=== PATIENT | female | born 1990 | race Caucasian/White ===

== ENCOUNTER 2017-11-29 19:34 | Inpatient (IN) | payer BC ==
[2017-11-29] MEDS ORDERED: Sodium Chloride 0.9% 2.5 ML Syringe FLUSH PRN (20:05)
[2017-11-29] MEDS ORDERED: Misoprostol 25 MCG (1/4 of 100 MCG) Tab VAG PRN (20:05)
[2017-11-29] MEDS ORDERED: Water For Irrigation,Sterile 1,000 ML Container IRR PRN (20:05)
[2017-11-29] MEDS ORDERED: Misoprostol 200 MCG Tab PO PRN (20:05)
[2017-11-29] MEDS ORDERED: Carboprost Tromethamine 250 MCG/1 ML Amp IM PRN (20:05)
[2017-11-29] MEDS ORDERED: Methylergonovine 0.2 MG/1 ML Amp IM PRN (20:05)
[2017-11-29] MEDS ORDERED: Butorphanol 1 MG/ML SDV IVPUSH PRN (20:05)
[2017-11-29] MEDS ORDERED: Terbutaline 1 MG/ML SDV SUBCUT PRN (20:05)
[2017-11-29] MEDS ORDERED: Sodium Chloride 0.9% 10 ML Syringe FLUSH PRN (20:05)
[2017-11-29] MEDS ORDERED: Nalbuphine 10 MG/1 ML Vial IVPUSH PRN (20:05)
[2017-11-29] MEDS ORDERED: Lidocaine 1% 50 ML MDV INJECT PRN (20:05)
[2017-11-29] MEDS ORDERED: Oxytocin/0.9 % Sodium Chloride 30 UNIT/500 ML BAG IV SCH ×2 (20:15)
[2017-11-29] MEDS: Lactated Ringers 1,000 ML IV SCH ×2 (20:26→23:57)
[2017-11-29] MEDS ORDERED: Dinoprostone 10 MG Insert VAG ONE (23:30)
[2017-11-30] MEDS ORDERED: Ropivacaine 0.2% 2 MG/ML 20 ML SDV ONE (12:59)
--- NOTE | 2017-11-30 13:28 | PCM.PREANE ---
Preanesthetic Assessment - Procedure Proposed Procedure: induction of labor-epidural - Anesthesia/Transfusion/Family Hx Anesthesia History: Prior Anesthesia Without Reaction Family History of Anesthesia Reaction: No Transfusion History: No Prior Transfusion(s) - Review of Systems Other: Reports: None - Physical Assessment Height: 5 ft 6 in Weight: 87.543 kg ASA Class: 2 Mental Status: Alert & Oriented x3 Airway Class: Mallampati = 1 Dentition: Reports: Normal Dentition Thyro-Mental Finger Breadths: 3 Mouth Opening Finger Breadths: 3 ROM/Head Extension: Full - Lab Values: Laboratory Last Values WBC 16.57 K/uL (4.0-11.0) H 11/29/17 20:18 RBC 3.74 M/uL (4.30-5.90) L 11/29/17 20:18 Hgb 11.6 g/dL (12.0-16.0) L 11/29/17 20:18 Hct 33.9 % (36.0-46.0) L 11/29/17 20:18 MCV 90.6 fL (80.0-98.0) 11/29/17 20:18 MCH 31.0 pg (27.0-32.0) 11/29/17 20:18 MCHC 34.2 g/dL (31.0-37.0) 11/29/17 20:18 RDW Std Deviation 45.3 fl (28.0-62.0) 11/29/17 20:18 RDW Coeff of Keven 14 % (11.0-15.0) 11/29/17 20:18 Plt Count 192 K/uL (150-400) 11/29/17 20:18 MPV 11.20 fL (7.40-12.00) 11/29/17 20:18 Nucleated RBC % 0.0 /100WBC 11/29/17 20:18 Nucleated RBCs # 0 K/uL 11/29/17 20:18 Blood Type A POSITIVE 11/29/17 20:18 Antibody Screen NEGATIVE 11/29/17 20:18 - Allergies Allergies/Adverse Reactions: Allergies Allergy/AdvReac Type Severity Reaction Status Date / Time No Known Allergies Allergy Verified 11/29/17 20:03 - Blood Blood Available: Yes Product(s) Available: PRBC - Acknowledgements Anesthesia Type Planned: Epidural Pt an Appropriate Candidate for the Planned Anesthesia: Yes Alternatives and Risks of Anesthesia Discussed w Pt/Guardian: Yes Pt/Guardian Understands and Agrees with Anesthesia Plan: Yes PreAnesthesia Questionnaire [employer] History: Reports: - Past Surgical History HEENT Surgical History: Reports: Tonsillectomy - SUBSTANCE USE Smoking Status *Q: Never Smoker Second Hand Smoke Exposure: No Recreational Drug Use History: No - CURRENT (IN HOUSE) MEDS Current Meds: Current Medications Butorphanol Tartrate (Stadol) 1 mg IVPUSH ASDIRECTED PRN PRN Reason: Pain Carboprost Tromethamine (Hemabate Ds) 250 mcg IM ASDIRECTED PRN PRN Reason: Post Hemorrhage Lactated Ringer's (Ringers, Lactated) 1,000 mls @ 150 mls/hr IV ASDIRECTED EDWARD Last Admin: 11/29/17 23:57 Dose: 150 mls/hr Oxytocin/Sodium Chloride (Oxytocin 30 Unit/500 Ml-Ns) 30 unit in 500 mls @ 999 mls/hr IV ASDIRECTED EDWARD Oxytocin/Sodium Chloride (Oxytocin 30 Unit/500 Ml-Ns) 30 unit in 500 mls @ 2 mls/hr IV TITRATE EDWARD; 2 MUNITS/MIN PRN Reason: Protocol Last Titration: 11/30/17 12:59 Dose: 2 munits/min, 2 mls/hr Lidocaine HCl (Xylocaine 1%) 50 ml INJECT .ONCE PRN PRN Reason: Laceration repair Methylergonovine Maleate (Methergine) 0.2 mg IM ASDIRECTED PRN PRN Reason: Post Hemorrhage Misoprostol (Cytotec) 200 mcg PO .ONCE PRN PRN Reason: Post Hemorrhage Misoprostol (Cytotec) 25 mcg VAG Q6H PRN PRN Reason: Cervical Ripening Nalbuphine HCl (Nubain) 10 mg IVPUSH Q1H PRN PRN Reason: Pain (severe 7-10) Sodium Chloride (Saline Flush) 10 ml FLUSH ASDIRECTED PRN PRN Reason: Keep Vein Open Sodium Chloride (Saline Flush) 2.5 ml FLUSH ASDIRECTED PRN PRN Reason: Keep Vein Open Sterile Water (Sterile Water For Irrigation) 1,000 ml IRR ASDIRECTED PRN PRN Reason: delivery Terbutaline Sulfate (Brethine) 0.25 mg SUBCUT ASDIRECTED PRN PRN Reason: Tacysystole Discontinued Medications Dinoprostone (Cervidil) 10 mg VAG ONETIME ONE Stop: 11/29/17 23:31 Last Admin: 11/29/17 23:57 Dose: 10 mg Ropivacaine (Naropin 0.2%) Confirm Administered Dose 20 ml .ROUTE .STK-MED ONE Stop: 11/30/17 13:00
[2017-11-30] MEDS: Lactated Ringers 1,000 ML IV SCH (15:00)
[2017-11-30] MEDS ORDERED: Witch Hazel Medicated Pads 40/Jar TOP PRN (18:15)
[2017-11-30] MEDS ORDERED: oxyCODONE 5 MG Tab PO PRN (18:15)
[2017-11-30] MEDS ORDERED: Benzocaine/Menthol 20%-0.5% Spray 78 GM Cannister TOP PRN (18:15)
[2017-11-30] MEDS ORDERED: Acetaminophen 500 MG Tab PO PRN (18:15)
[2017-11-30] MEDS ORDERED: Ibuprofen 400 MG Tab PO PRN (18:15)
[2017-11-30] MEDS ORDERED: Methylergonovine 0.2 MG/1 ML Amp IM PRN (18:15)
[2017-11-30] MEDS ORDERED: Lanolin 100% Cream 7 GM Tube TOP PRN (18:15)
[2017-11-30] MEDS ORDERED: Bisacodyl 10 MG Supp RECTAL PRN (18:15)
[2017-11-30] MEDS: Ibuprofen 800 MG Tab PO PRN (21:27)
--- NOTE | 2017-12-01 00:31 | OR ---
SURGEON: Kaylan Hernandez M.D. DATE OF PROCEDURE: 11/30/2017 PREOPERATIVE DIAGNOSES: 1. A 40 and 4/7 weeks' intrauterine . 2. Polyhydramnios. 3. Postdates induction. POSTOPERATIVE DIAGNOSES: 1. A 40 and 4/7 weeks' intrauterine . 2. Polyhydramnios. 3. Postdates induction. 4. Cervidil and Pitocin induction of labor. PROCEDURE: Vacuum-assisted vaginal delivery with repair of second-degree laceration. ANESTHESIA: Epidural. ESTIMATED BLOOD LOSS: Less than 300 mL. FINDINGS: Liveborn female, scores of 8 and 8. Weight is pending at the time of dictation. Placenta was delivered spontaneously. Schultze intact with 3 vessels. Second-degree perineal laceration was repaired as well as a right labial laceration which was sutured for hemostasis. BRIEF HISTORY: This is a 27-year-old female. She is G1, P0. She presents to the clinic at 40 and 3/7 weeks' gestation with postdates. Biophysical profile showing polyhydramnios, therefore, recommendation for induction of labor was made and she did agree. She was sent to Labor and Delivery. She was 1 to 2 cm, 50%, -2 station. Plan initially was for Cytotec and although she had a reactive NST in the clinic, the NST was not reactive on Labor and Delivery. Therefore, Cervidil was placed and throughout the night, she then did develop a reactive NST. In the morning, she was 3 cm, 70%, -1 station. Artificial rupture of membranes was performed. Clear fluid noted. She was allowed to continue with spontaneous labor for 2 hours. She was then 3 to 4 cm dilated, 70%, -1 station, therefore, Pitocin was initiated. Shortly thereafter, she received an epidural for pain control. She had some episodes of deceleration throughout labor. The Pitocin was discontinued, restarted. She did progress to complete. DESCRIPTION OF PROCEDURE: With the patient in dorsal lithotomy position, the patient pushed over approximately a 30-minute time period to a 5+ station. She did have deep decelerations over the last 15 minutes of pushing, therefore, I did recommend proceeding with vacuum-assisted vaginal delivery with risks discussed including, scalp laceration, cephalohematoma, vaginal laceration, and intracranial hemorrhage. Understanding these risks, she does desire to proceed. With the patient in dorsal lithotomy position, the patient had been pushing for approximately 15 minutes. The head was at a +4 station in the direct occiput anterior position. The bladder had been drained. She was noted to have a gynecoid pelvis and estimated weight was 3300 g. The vacuum was applied in the mid sagittal line, 2 cm anterior to the posterior fontanelle, and with a single maternal push, the head was delivered over the perineum with support. The vacuum was removed. There was subsequent delivery of the infant's shoulders and body. There was no nuchal or body cord. The was immediately vigorous and was handed to the mother in the presence of the nurse attending delivery. The was a liveborn female, scores of 8 and 8. Weight is pending at the time of dictation. After the cord had ceased to pulsate, it was doubly clamped and cut. Cord blood was collected for cord ABGs as well as routine cord blood sampling. Pitocin was initiated after delivery of the infant to assist with delivery of the placenta which was delivered spontaneously. Schultze intact with 3 vessels. Upon inspection of the pelvis and perineum, there were no periurethral, vaginal sidewall, cervical, or rectal lacerations. There was a second-degree perineal laceration that was repaired using multiple interrupted [id number] sutures of 2-0 Caprosyn for the deep perineal tissue and a running lock suture over the vaginal mucosa for the same, followed by subcuticular suture for the skin. There was some bleeding from the upper right labial laceration and that was controlled with a single figure-of- eight suture of the 2-0 Caprosyn. Final sponge, needle, and instrument count were correct. There were no complications. Mother and baby remained in LDRP in good condition. ABHIJIT / IGNACIA /[id number]
[2017-12-01] MEDS: Ibuprofen 800 MG Tab PO PRN ×3 (04:08→22:36)
--- NOTE | 2017-12-01 07:56 | PCM.PNPP ---
<Graciela Garrett - Last Filed: 12/01/17 07:54> - General Info Date of Service: 12/01/17 Functional Status: Reports: Pain Controlled, Tolerating Diet, Ambulating, Urinating - Review of Systems General: Denies: Fever, Weakness, Fatigue Pulmonary: Denies: Shortness of Breath, Pleuritic Chest Pain, Cough, Other Cardiovascular: Denies: Chest Pain, Palpitations, Dyspnea on Exertion Gastrointestinal: Denies: Abdominal Pain Genitourinary: Denies: Dysuria - General Info Date of Service: 12/01/17 - Patient Data Vital Signs - Most Recent: Last Vital Signs Temp 36.4 C 12/01/17 04:00 Pulse 66 12/01/17 04:00 Resp 17 12/01/17 04:00 BP 124/75 12/01/17 04:00 Pulse Ox 97 12/01/17 04:00 Weight - Most Recent: 87.543 kg I&O - Last 24 Hours: Intake & Output 11/30/17 12/01/17 12/01/17 22:59 06:59 14:59 Intake Total 400 Output Total 500 Balance -100 Lab Results - Last 24 Hours: Laboratory Results - last 24 hr 11/30/17 11/30/17 12/01/17 Range/Units 17:41 17:41 06:36 Hgb 11.0 L (12.0-16.0) g/dL Hct 32.0 L (36.0-46.0) % Cord ABG pH 7.287 (7.18-7.38) Cord ABG Base Excess -6 (-10--2) Cord VBG pH 7.251 (7.25-7.45) Cord VBG Base Excess -6 (-10--2) Med Orders - Current: Current Medications Acetaminophen (Tylenol Extra Strength) 500 mg PO Q4H PRN PRN Reason: Pain Acetaminophen (Tylenol Extra Strength) 1,000 mg PO Q4H PRN PRN Reason: Pain Benzocaine/Menthol (Dermoplast Pain Relief 20%-0.5% [place]) 78 gm TOP ASDIRECTED PRN PRN Reason: Perineal Comfort Measure Bisacodyl (Dulcolax) 10 mg RECTAL .ONCE PRN PRN Reason: Constipation Docusate Sodium (Colace) 100 mg PO BID PRN PRN Reason: Constipation Emollient Ointment (Lansinoh Hpa) 0 gm TOP ASDIRECTED PRN PRN Reason: Sore Nipples Last Admin: 11/30/17 21:28 Dose: 1 tube Ibuprofen (Motrin) 400 mg PO Q4H PRN PRN Reason: Pain Ibuprofen (Motrin) 800 mg PO Q6H PRN PRN Reason: Pain Last Admin: 12/01/17 04:08 Dose: 800 mg Methylergonovine Maleate (Methergine) 0.2 mg IM .ONCE PRN PRN Reason: Excessive Vaginal Bleeding Oxycodone HCl (Oxycodone) 5 mg PO Q2H PRN PRN Reason: Pain Witch Angela (Tucks) 1 pad TOP ASDIRECTED PRN PRN Reason: comfort care Last Admin: 11/30/17 21:29 Dose: 1 tub Discontinued Medications Butorphanol Tartrate (Stadol) 1 mg IVPUSH ASDIRECTED PRN PRN Reason: Pain Carboprost Tromethamine (Hemabate Ds) 250 mcg IM ASDIRECTED PRN PRN Reason: Post Hemorrhage Dinoprostone (Cervidil) 10 mg VAG ONETIME ONE Stop: 11/29/17 23:31 Last Admin: 11/29/17 23:57 Dose: 10 mg Lactated Ringer's (Ringers, Lactated) 1,000 mls @ 150 mls/hr IV ASDIRECTED EDWARD Last Admin: 11/30/17 15:00 Dose: 150 mls/hr Oxytocin/Sodium Chloride (Oxytocin 30 Unit/500 Ml-Ns) 30 unit in 500 mls @ 999 mls/hr IV ASDIRECTED EDWARD Oxytocin/Sodium Chloride (Oxytocin 30 Unit/500 Ml-Ns) 30 unit in 500 mls @ 2 mls/hr IV TITRATE EDWARD; 2 MUNITS/MIN PRN Reason: Protocol Last Titration: 11/30/17 17:42 Dose: 500 munits/min, 500 mls/hr Lidocaine HCl (Xylocaine 1%) 50 ml INJECT .ONCE PRN PRN Reason: Laceration repair Methylergonovine Maleate (Methergine) 0.2 mg IM ASDIRECTED PRN PRN Reason: Post Hemorrhage Misoprostol (Cytotec) 200 mcg PO .ONCE PRN PRN Reason: Post Hemorrhage Misoprostol (Cytotec) 25 mcg VAG Q6H PRN PRN Reason: Cervical Ripening Nalbuphine HCl (Nubain) 10 mg IVPUSH Q1H PRN PRN Reason: Pain (severe 7-10) Ropivacaine (Naropin 0.2%) Confirm Administered Dose 20 ml .ROUTE .[place] ONE Stop: 11/30/17 13:00 Sodium Chloride (Saline Flush) 10 ml FLUSH ASDIRECTED PRN PRN Reason: Keep Vein Open Sodium Chloride (Saline Flush) 2.5 ml FLUSH ASDIRECTED PRN PRN Reason: Keep Vein Open Sterile Water (Sterile Water For Irrigation) 1,000 ml IRR ASDIRECTED PRN PRN Reason: delivery Terbutaline Sulfate (Brethine) 0.25 mg SUBCUT ASDIRECTED PRN PRN Reason: Tacysystole - Interaction Disposition, : [place] in Room with Family Interaction: Holding Infant Feeding: Attempted ; Nursed Fair/Poor Support Person: - Recovery Exam Fundal Tone: Firm Fundal Level: 1 Fingerbreadths Below Umbilicus Fundal Placement: Midline Lochia Amount: Scant Lochia Color: Brownish Episiotomy/Laceration: Approximated Bladder Status: Voiding Urinary Elimination: Voided - Exam General: Alert, Oriented Neck: Supple Lungs: Clear to Auscultation, Normal Respiratory Effort Cardiovascular: Regular Rate, Regular Rhythm GI/Abdominal Exam: Normal Bowel Sounds, No Distention Extremities: Normal Inspection, Pedal Edema (trace) Psy/Mental Status: Alert - Problem List & Annotations (1) Vacuum extractor delivery, delivered SNOMED Code(s): 347215750 Code(s): O66.5 - ATTEMPTED APPLICATION OF VACUUM EXTRACTOR AND FORCEPS Status: Acute Current Visit: Yes - Problem List Review Problem List Initiated/Reviewed/Updated: Yes - Assessment Assessment:: PPD#1 from vacuum-assisted vaginal delivery. Minimal pain and lochia. Work on breast feeding today. Anticipate discharge home tomorrow. - Plan Plan:: Continue routine post-op cares. Aim for discharge home tomorrow. <Kaylan Hernandez - Last Filed: 12/01/17 08:57> - Patient Data Vital Signs - Most Recent: Last Vital Signs Temp 36.4 C 12/01/17 04:00 Pulse 66 12/01/17 04:00 Resp 17 02/09/18 04:00 BP 124/75 12/01/17 04:00 Pulse Ox 97 12/01/17 04:00 I&O - Last 24 Hours: Intake & Output 11/30/17 12/01/17 12/01/17 22:59 06:59 14:59 Intake Total 400 Output Total 500 Balance -100 Lab Results - Last 24 Hours: Laboratory Results - last 24 hr 11/30/17 11/30/17 12/01/17 Range/Units 17:41 17:41 06:36 Hgb 11.0 L (12.0-16.0) g/dL Hct 32.0 L (36.0-46.0) % Cord ABG pH 7.287 (7.18-7.38) Cord ABG Base Excess -6 (-10--2) Cord VBG pH 7.251 (7.25-7.45) Cord VBG Base Excess -6 (-10--2) Med Orders - Current: Current Medications Acetaminophen (Tylenol Extra Strength) 500 mg PO Q4H PRN PRN Reason: Pain Acetaminophen (Tylenol Extra Strength) 1,000 mg PO Q4H PRN PRN Reason: Pain Benzocaine/Menthol (Dermoplast Pain Relief 20%-0.5% [place]) 78 gm TOP ASDIRECTED PRN PRN Reason: Perineal Comfort Measure Bisacodyl (Dulcolax) 10 mg RECTAL .ONCE PRN PRN Reason: Constipation Docusate Sodium (Colace) 100 mg PO BID PRN PRN Reason: Constipation Emollient Ointment (Lansinoh Hpa) 0 gm TOP ASDIRECTED PRN PRN Reason: Sore Nipples Last Admin: 11/30/17 21:28 Dose: 1 tube Ibuprofen (Motrin) 400 mg PO Q4H PRN PRN Reason: Pain Ibuprofen (Motrin) 800 mg PO Q6H PRN PRN Reason: Pain Last Admin: 12/01/17 04:08 Dose: 800 mg Methylergonovine Maleate (Methergine) 0.2 mg IM .ONCE PRN PRN Reason: Excessive Vaginal Bleeding Oxycodone HCl (Oxycodone) 5 mg PO Q2H PRN PRN Reason: Pain Witch Angela (Tucks) 1 pad TOP ASDIRECTED PRN PRN Reason: comfort care Last Admin: 11/30/17 21:29 Dose: 1 tub Discontinued Medications Butorphanol Tartrate (Stadol) 1 mg IVPUSH ASDIRECTED PRN PRN Reason: Pain Carboprost Tromethamine (Hemabate Ds) 250 mcg IM ASDIRECTED PRN PRN Reason: Post Hemorrhage Dinoprostone (Cervidil) 10 mg VAG ONETIME ONE Stop: 11/29/17 23:31 Last Admin: 11/29/17 23:57 Dose: 10 mg Lactated Ringer's (Ringers, Lactated) 1,000 mls @ 150 mls/hr IV ASDIRECTED EDWARD Last Admin: 11/30/17 15:00 Dose: 150 mls/hr Oxytocin/Sodium Chloride (Oxytocin 30 Unit/500 Ml-Ns) 30 unit in 500 mls @ 999 mls/hr IV ASDIRECTED EDWARD Oxytocin/Sodium Chloride (Oxytocin 30 Unit/500 Ml-Ns) 30 unit in 500 mls @ 2 mls/hr IV TITRATE EDWARD; 2 MUNITS/MIN PRN Reason: Protocol Last Titration: 11/30/17 17:42 Dose: 500 munits/min, 500 mls/hr Lidocaine HCl (Xylocaine 1%) 50 ml INJECT .ONCE PRN PRN Reason: Laceration repair Methylergonovine Maleate (Methergine) 0.2 mg IM ASDIRECTED PRN PRN Reason: Post Hemorrhage Misoprostol (Cytotec) 200 mcg PO .ONCE PRN PRN Reason: Post Hemorrhage Misoprostol (Cytotec) 25 mcg VAG Q6H PRN PRN Reason: Cervical Ripening Nalbuphine HCl (Nubain) 10 mg IVPUSH Q1H PRN PRN Reason: Pain (severe 7-10) Ropivacaine (Naropin 0.2%) Confirm Administered Dose 20 ml .ROUTE .STK-MED ONE Stop: 11/30/17 13:00 Sodium Chloride (Saline Flush) 10 ml FLUSH ASDIRECTED PRN PRN Reason: Keep Vein Open Sodium Chloride (Saline Flush) 2.5 ml FLUSH ASDIRECTED PRN PRN Reason: Keep Vein Open Sterile Water (Sterile Water For Irrigation) 1,000 ml IRR ASDIRECTED PRN PRN Reason: delivery Terbutaline Sulfate (Brethine) 0.25 mg SUBCUT ASDIRECTED PRN PRN Reason: Tacysystole - My Orders Last 24 Hours: My Active Orders 11/30/17 18:15 Patient Status [ADT] Routine May Shower [RC] ASDIRECTED Up ad [place] [RC] ASDIRECTED Vital Signs [RC] PER UNIT ROUTINE Acetaminophen [Tylenol Extra Strength] 1,000 mg PO Q4H PRN Acetaminophen [Tylenol Extra Strength] 500 mg PO Q4H PRN Benzocaine/Menthol [Dermoplast Pain Relief 20%-0.5% [place]] 78 gm TOP ASDIRECTED PRN Bisacodyl [Dulcolax] 10 mg RECTAL .ONCE PRN Docusate Sodium [Colace] 100 mg PO BID PRN Ibuprofen [Motrin] 400 mg PO Q4H PRN Ibuprofen [Motrin] 800 mg PO Q6H PRN Lanolin [Lansinoh HPA] See Dose Instructions TOP ASDIRECTED PRN Methylergonovine [Methergine] 0.2 mg IM .ONCE PRN Witch Angela [Tucks] 1 pad TOP ASDIRECTED PRN oxyCODONE 5 mg PO Q2H PRN Assess Lochia [WOMSER] Per Unit Routine Assess Uterine Involution [WOMSER] Per Unit Routine Peripheral IV Discontinue [OM.PC] Routine Resuscitation Status Routine 11/30/17 18:16 Perineal Care [OM.PC] Per Unit Routine 11/30/17 Dinner Regular Diet [DIET] - Plan Plan:: Patient was seen and examined by me and I agree with above.
--- NOTE | 2017-12-01 09:01 | PCM48HPAN ---
Post Anesthesia Note - EVALUATION WITHIN 48HRS OF ANESTHETIC Vital Signs in Normal Range: Yes Patient Participated in Evaluation: Yes Respiratory Function Stable: Yes Airway Patent: Yes Cardiovascular Function Stable: Yes Hydration Status Stable: Yes Pain Control Satisfactory: Yes Nausea and Vomiting Control Satisfactory: Yes Mental Status Recovered: Yes
[2017-12-01] MEDS: Acetaminophen 500 MG Tab PO PRN (20:09)
[2017-12-01] MEDS: Docusate Sodium 100 MG Cap PO PRN (20:10)
[2017-12-02] MEDS: Ibuprofen 800 MG Tab PO PRN ×2 (05:28→11:52)
[2017-12-02] MEDS: Acetaminophen 500 MG Tab PO PRN (08:40)
[2017-12-02] MEDS: Docusate Sodium 100 MG Cap PO PRN (08:41)
--- NOTE | 2017-12-02 10:00 | PCM.PNPP ---
- General Info Date of Service: 12/02/17 Admission Dx/Problem (Free Text): 27 yo P1 s/p VAVD Subjective Update: Denies any complains , she has good pain control Functional Status: Reports: Pain Controlled, Tolerating Diet, Ambulating, Urinating - Review of Systems General: Reports: No Symptoms HEENT: Reports: No Symptoms Pulmonary: Reports: No Symptoms Cardiovascular: Reports: No Symptoms Gastrointestinal: Reports: No Symptoms Genitourinary: Reports: No Symptoms Musculoskeletal: Reports: No Symptoms Skin: Reports: No Symptoms Neurological: Reports: No Symptoms Psychiatric: Reports: No Symptoms - General Info Date of Service: 12/02/17 - Patient Data Vital Signs - Most Recent: Last Vital Signs Temp 37.4 C 12/02/17 08:00 Pulse 80 12/02/17 08:00 Resp 16 12/02/17 08:00 BP 129/69 12/02/17 08:00 Pulse Ox 96 12/02/17 08:00 Weight - Most Recent: 87.543 kg Med Orders - Current: Current Medications Acetaminophen (Tylenol Extra Strength) 500 mg PO Q4H PRN PRN Reason: Pain Acetaminophen (Tylenol Extra Strength) 1,000 mg PO Q4H PRN PRN Reason: Pain Last Admin: 12/02/17 08:40 Dose: 1,000 mg Benzocaine/Menthol (Dermoplast Pain Relief 20%-0.5% [place]) 78 gm TOP ASDIRECTED PRN PRN Reason: Perineal Comfort Measure Bisacodyl (Dulcolax) 10 mg RECTAL .ONCE PRN PRN Reason: Constipation Docusate Sodium (Colace) 100 mg PO BID PRN PRN Reason: Constipation Last Admin: 12/02/17 08:41 Dose: 100 mg Emollient Ointment (Lansinoh Hpa) 0 gm TOP ASDIRECTED PRN PRN Reason: Sore Nipples Last Admin: 11/30/17 21:28 Dose: 1 tube Ibuprofen (Motrin) 400 mg PO Q4H PRN PRN Reason: Pain Ibuprofen (Motrin) 800 mg PO Q6H PRN PRN Reason: Pain Last Admin: 12/02/17 05:28 Dose: 800 mg Methylergonovine Maleate (Methergine) 0.2 mg IM .ONCE PRN PRN Reason: Excessive Vaginal Bleeding Oxycodone HCl (Oxycodone) 5 mg PO Q2H PRN PRN Reason: Pain Witch Angela (Tucks) 1 pad TOP ASDIRECTED PRN PRN Reason: comfort care Last Admin: 11/30/17 21:29 Dose: 1 tub Discontinued Medications Butorphanol Tartrate (Stadol) 1 mg IVPUSH ASDIRECTED PRN PRN Reason: Pain Carboprost Tromethamine (Hemabate Ds) 250 mcg IM ASDIRECTED PRN PRN Reason: Post Hemorrhage Dinoprostone (Cervidil) 10 mg VAG ONETIME ONE Stop: 11/29/17 23:31 Last Admin: 11/29/17 23:57 Dose: 10 mg Lactated Ringer's (Ringers, Lactated) 1,000 mls @ 150 mls/hr IV ASDIRECTED EDWARD Last Admin: 11/30/17 15:00 Dose: 150 mls/hr Oxytocin/Sodium Chloride (Oxytocin 30 Unit/500 Ml-Ns) 30 unit in 500 mls @ 999 mls/hr IV ASDIRECTED EDWARD Oxytocin/Sodium Chloride (Oxytocin 30 Unit/500 Ml-Ns) 30 unit in 500 mls @ 2 mls/hr IV TITRATE EDWARD; 2 MUNITS/MIN PRN Reason: Protocol Last Titration: 11/30/17 17:42 Dose: 500 munits/min, 500 mls/hr Lidocaine HCl (Xylocaine 1%) 50 ml INJECT .ONCE PRN PRN Reason: Laceration repair Methylergonovine Maleate (Methergine) 0.2 mg IM ASDIRECTED PRN PRN Reason: Post Hemorrhage Misoprostol (Cytotec) 200 mcg PO .ONCE PRN PRN Reason: Post Hemorrhage Misoprostol (Cytotec) 25 mcg VAG Q6H PRN PRN Reason: Cervical Ripening Nalbuphine HCl (Nubain) 10 mg IVPUSH Q1H PRN PRN Reason: Pain (severe 7-10) Ropivacaine (Naropin 0.2%) Confirm Administered Dose 20 ml .ROUTE .STK-MED ONE Stop: 11/30/17 13:00 Last Admin: 12/01/17 19:54 Dose: Not Given Sodium Chloride (Saline Flush) 10 ml FLUSH ASDIRECTED PRN PRN Reason: Keep Vein Open Sodium Chloride (Saline Flush) 2.5 ml FLUSH ASDIRECTED PRN PRN Reason: Keep Vein Open Sterile Water (Sterile Water For Irrigation) 1,000 ml IRR ASDIRECTED PRN PRN Reason: delivery Terbutaline Sulfate (Brethine) 0.25 mg SUBCUT ASDIRECTED PRN PRN Reason: Tacysystole - Infant Interaction Disposition, : in Room with Family Infant Interaction: Holding Feeding: Attempted ; Nursed Fair/Poor Support Person: - Recovery Exam Fundal Tone: Firm Fundal Level: 1 Fingerbreadths Above Umbilicus Fundal Placement: Midline Lochia Amount: Small Lochia Color: Rubra/Red Perineum Description: Other (see below) Other Perinuem Description: Second degree laceration Episiotomy/Laceration: Approximated Bladder Status: Voiding Urinary Elimination: Voided - Exam General: Alert, Oriented HEENT: Pupils Equal Neck: Supple Lungs: Clear to Auscultation Cardiovascular: Regular Rate, Regular Rhythm GI/Abdominal Exam: Normal Bowel Sounds Neurological: No New Focal Deficit Psy/Mental Status: Alert - Problem List & Annotations (1) Vacuum extractor delivery, delivered SNOMED Code(s): 095253948 Code(s): O66.5 - ATTEMPTED APPLICATION OF VACUUM EXTRACTOR AND FORCEPS Status: Acute Current Visit: Yes - Problem List Review Problem List Initiated/Reviewed/Updated: Yes - Assessment Assessment:: PPD#2 from vacuum-assisted vaginal delivery. Minimal pain and lochia. - Plan Plan:: Discharge home today Routine care
== END 2017-12-02 12:55 | disposition home or self-care (01) | DRG 560 ==
LOC: MW.OBCHECK 19:34 → MW.OB 19:37 → MW.OBCHECK 20:04 → MW.OB 20:05 → OBSVTOIN 11-30 18:15 → MW.OB 11-30 21:00
PROVIDERS: ADMIT Obstetrics & Gynecology; ATTEND Obstetrics & Gynecology
PROC: 10D07Z6 Extraction of Products of Conception, Vacuum, Via Natural or Artificial Opening (ICD-10-PCS; principal; 2017-11-30)
PROC: 3E0P7VZ Introduction of Hormone into Female Reproductive, Via Natural or Artificial Opening (ICD-10-PCS; 2017-11-30)
PROC: 3E033VJ Introduction of Other Hormone into Peripheral Vein, Percutaneous Approach (ICD-10-PCS; 2017-11-30)
PROC: 10907ZC Drainage of Amniotic Fluid, Therapeutic from Products of Conception, Via Natural or Artificial Opening (ICD-10-PCS; 2017-11-30)
PROC: 0KQM0ZZ Repair Perineum Muscle, Open Approach (ICD-10-PCS; 2017-11-30)
DX: O40.3XX0 Polyhydramnios, third trimester, not applicable or unspecified (principal); O70.1 Second degree perineal laceration during delivery; O48.0 Post-term pregnancy; Z3A.40 40 weeks gestation of pregnancy; Z37.0 Single live birth
CPT/HCPCS: 36415; 51702; 59025; 59409; 82803; 85014; 85018; 85027; 86850; 86900; 86901; A9270-GY; J2590; J7120

== ENCOUNTER 2020-01-26 17:01 | Inpatient (IN) | payer BC ==
[2020-01-26] MEDS ORDERED: Misoprostol 200 MCG Tab PO PRN (17:21)
[2020-01-26] MEDS ORDERED: Carboprost Tromethamine 250 MCG/1 ML Amp IM PRN (17:21)
[2020-01-26] MEDS ORDERED: Butorphanol 1 MG/ML SDV IVPUSH PRN (17:21)
[2020-01-26] MEDS ORDERED: Ondansetron 4 MG/2 ML SDV IVPUSH PRN (17:21)
[2020-01-26] MEDS ORDERED: Lidocaine 1% 50 ML MDV INJECT PRN (17:21)
[2020-01-26] MEDS ORDERED: Methylergonovine 0.2 MG/1 ML Amp IM PRN (17:21)
[2020-01-26] MEDS ORDERED: Water For Irrigation,Sterile 1,000 ML Container IRR PRN (17:21)
[2020-01-26] MEDS ORDERED: Sodium Chloride 0.9% 10 ML Syringe FLUSH PRN (17:21)
[2020-01-26] MEDS ORDERED: Sodium Chloride 0.9% 10 ML SDV IV PRN (17:21)
[2020-01-26] MEDS ORDERED: Nalbuphine 10 MG/1 ML Vial IVPUSH PRN (17:21)
[2020-01-26] MEDS ORDERED: Sodium Chloride 0.9% 2.5 ML Syringe FLUSH PRN (17:21)
[2020-01-26] MEDS ORDERED: Tranexamic Acid 1,000 MG in Sodium Chloride 0.9% 100 ML IV PRN (17:21)
[2020-01-26] MEDS ORDERED: Terbutaline 1 MG/ML SDV SUBCUT PRN (17:21)
[2020-01-26] MEDS ORDERED: Oxytocin/0.9 % Sodium Chloride 30 UNIT/500 ML BAG IV SCH ×2 (17:30)
[2020-01-26] MEDS ORDERED: Misoprostol 25 MCG (1/4 of 100 MCG) Tab VAG PRN (18:00)
[2020-01-26] MEDS: Lactated Ringers 1,000 ML IV SCH (18:36)
[2020-01-27] MEDS ORDERED: Bupivicaine/fentaNYL/NS 250 ML ONE (05:43)
[2020-01-27] MEDS: Lactated Ringers 1,000 ML IV SCH ×2 (05:51→07:31)
--- NOTE | 2020-01-27 06:14 | PCM.PREANE ---
Preanesthetic Assessment - Procedure Proposed Procedure: Continuous Labor Epidural - Anesthesia/Transfusion/Family Hx Anesthesia History: Prior Anesthesia Without Reaction Transfusion History: No Prior Transfusion(s) - Review of Systems General: No Symptoms Pulmonary: No Symptoms Cardiovascular: No Symptoms Gastrointestinal: No Symptoms Neurological: No Symptoms Other: Reports: None - Physical Assessment Height: 5 ft 7 in Weight: 87.09 kg ASA Class: 2 Mental Status: Alert & Oriented x3 Dentition: Reports: Normal Dentition ROM/Head Extension: Full Lungs: Clear to Auscultation, Normal Respiratory Effort Cardiovascular: Regular Rate, Regular Rhythm - Lab Values: Laboratory Last Values WBC 15.03 K/uL (4.0-11.0) H 01/26/20 18:24 RBC 3.89 M/uL (4.30-5.90) L 01/26/20 18:24 Hgb 11.6 g/dL (12.0-16.0) L 01/26/20 18:24 Hct 35.4 % (36.0-46.0) L 01/26/20 18:24 MCV 91.0 fL (80.0-98.0) 01/26/20 18:24 MCH 29.8 pg (27.0-32.0) 01/26/20 18:24 MCHC 32.8 g/dL (31.0-37.0) 01/26/20 18:24 RDW Std Deviation 47.4 fl (28.0-62.0) 01/26/20 18:24 RDW Coeff of Keven 14 % (11.0-15.0) 01/26/20 18:24 Plt Count 211 K/uL (150-400) 01/26/20 18:24 MPV 11.90 fL (7.40-12.00) 01/26/20 18:24 Nucleated RBC % 0.0 /100WBC 01/26/20 18:24 Nucleated RBCs # 0 K/uL 01/26/20 18:24 Blood Type A POSITIVE 01/26/20 18:24 Antibody Screen NEGATIVE 01/26/20 18:24 - Allergies Allergies/Adverse Reactions: Allergies Allergy/AdvReac Type Severity Reaction Status Date / Time No Known Allergies Allergy Verified 11/29/17 20:03 - Anesthesia Plan Free Text/Narrative:: Continuous Labor Epidural - Acknowledgements Anesthesia Type Planned: Epidural Pt an Appropriate Candidate for the Planned Anesthesia: Yes Alternatives and Risks of Anesthesia Discussed w Pt/Guardian: Yes Pt/Guardian Understands and Agrees with Anesthesia Plan: Yes PreAnesthesia Questionnaire - Past Health History Medical/Surgical History: Denies Medical/Surgical History HEENT History: Reports: None Cardiovascular History: Reports: None Respiratory History: Reports: None Gastrointestinal History: Reports: None Genitourinary History: Reports: None 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: Reports: : 2 Para: 1 LMP (Approximate): Musculoskeletal History: Reports: None Neurological History: Reports: None Psychiatric History: Reports: ADHD Endocrine/Metabolic History: Reports: None Hematologic History: Reports: None Immunologic History: Reports: None Oncologic (Cancer) History: Reports: None Dermatologic History: Reports: None - Infectious Disease History Infectious Disease History: Reports: Chicken Pox - Past Surgical History HEENT Surgical History: Reports: Tonsillectomy - SUBSTANCE USE Smoking Status *Q: Never Smoker Tobacco Use Within Last Twelve Months: No Second Hand Smoke Exposure: No Recreational Drug Use History: No - HOME MEDS Home Medications: Home Meds Iron,Carbonyl/Ascorbic Acid [Iron 100-Vitamin C Tablet] 1 tab PO DAILY 01/26/20 [History] [id number]/Iron Fumarate/FA/DSS [ 19 Tablet] 1 each PO DAILY 01/26/20 [ History] - CURRENT (IN HOUSE) MEDS Current Meds: Current Medications Butorphanol Tartrate (Stadol) 1 mg IVPUSH Q1H PRN PRN Reason: Pain Carboprost Tromethamine (Hemabate Ds) 250 mcg IM ASDIRECTED PRN PRN Reason: Post Hemorrhage Lactated Ringer's (Ringers, Lactated) 1,000 mls @ 150 mls/hr IV ASDIRECTED EDWARD Last Admin: 01/27/20 05:51 Dose: 999 mls/hr Oxytocin/Sodium Chloride (Oxytocin 30 Unit/500 Ml-Ns) 30 unit in 500 mls @ 999 mls/hr IV TITRATE EDWARD Oxytocin/Sodium Chloride (Oxytocin 30 Unit/500 Ml-Ns) 30 unit in 500 mls @ 2 mls/hr IV TITRATE EDWARD; Protocol Last Admin: 01/27/20 01:54 Dose: 2 munits/min, 2 mls/hr Tranexamic Acid 1,000 mg/ (Sodium Chloride) 110 mls @ 660 mls/hr IV ONETIME PRN PRN Reason: Bleeding Lidocaine HCl (Xylocaine 1%) 50 ml INJECT ONETIME PRN PRN Reason: Laceration repair Methylergonovine Maleate (Methergine) 0.2 mg IM ASDIRECTED PRN PRN Reason: Post Hemorrhage Misoprostol (Cytotec) 200 mcg PO ONETIME PRN PRN Reason: Post Hemorrhage Misoprostol (Cytotec) 25 mcg VAG Q6H PRN PRN Reason: Cervical Ripening Last Admin: 01/26/20 18:37 Dose: 25 mcg Nalbuphine HCl (Nubain) 10 mg IVPUSH Q1H PRN PRN Reason: Pain (severe 7-10) Ondansetron HCl (Zofran) 4 mg IVPUSH Q6H PRN PRN Reason: Nausea/Vomiting Sodium Chloride (Saline Flush) 10 ml FLUSH ASDIRECTED PRN PRN Reason: Keep Vein Open Sodium Chloride (Saline Flush) 2.5 ml FLUSH ASDIRECTED PRN PRN Reason: Keep Vein Open Sodium Chloride (Normal Saline) 10 ml IV ASDIRECTED PRN PRN Reason: IV Use Sterile Water (Sterile Water For Irrigation) 1,000 ml IRR ASDIRECTED PRN PRN Reason: delivery Terbutaline Sulfate (Brethine) 0.25 mg SUBCUT ASDIRECTED PRN PRN Reason: Tacysystole Discontinued Medications Fentanyl/Bupivacaine HCl (Fentanyl/Bupivacaine/Ns 2 Mcg-0.125% 250 Ml) Confirm Administered Dose 250 mls @ as directed .ROUTE .[employer]-MED ONE Stop: 01/27/20 05:44
--- NOTE | 2020-01-27 10:03 | PCM.DEL ---
L & D Note - General Info Date of Service: 01/27/20 Mother's Due Date: 01/31/20 - Delivery Note Labor: Augmented by ARM, Augmented by Oxytocin Cervical Ripening Method: Misoprostil Delivery Outcome: Livebirth Delivery Method: Repeat Presentation: Left Occiput Anterior (KARTHIKEYAN) Nuchal Cord: None Prep: Other Anesthesia Type: Epidural Amniotic Fluid Description: Clear Episiotomy Type: None Laceration: 2nd Degree Suture type: Vicryl Suture size: 3-0 Placenta: Intact, Spontaneous Cord: 3 Vessels Resuscitation Needed: Yes [place]: Bulb Syringe Score 1 min: 9 Score 5 min: 9 Delivery Comments (Free Text/Narrative):: Liveborn female 9/9 weight is pending, placenta spontaneous Schultze intact with 3 vessels. - General Info Date of Service: 01/27/20 - Patient Data Weight - Most Recent: 87.09 kg Lab Results Last 24 Hours: Laboratory Results - last 24 hr 01/26/20 01/26/20 Range/Units 18:24 18:24 WBC 15.03 H (4.0-11.0) K/uL RBC 3.89 L (4.30-5.90) M/uL Hgb 11.6 L (12.0-16.0) g/dL Hct 35.4 L (36.0-46.0) % MCV 91.0 (80.0-98.0) fL MCH 29.8 (27.0-32.0) pg MCHC 32.8 (31.0-37.0) g/dL RDW Std Deviation 47.4 (28.0-62.0) fl RDW Coeff of Keven 14 (11.0-15.0) % Plt Count 211 (150-400) K/uL MPV 11.90 (7.40-12.00) fL Nucleated RBC % 0.0 /100WBC Nucleated RBCs # 0 K/uL Blood Type A POSITIVE Antibody Screen NEGATIVE Med Orders - Current: Current Medications Butorphanol Tartrate (Stadol) 1 mg IVPUSH Q1H PRN PRN Reason: Pain Carboprost Tromethamine (Hemabate Ds) 250 mcg IM ASDIRECTED PRN PRN Reason: Post Hemorrhage Lactated Ringer's (Ringers, Lactated) 1,000 mls @ 150 mls/hr IV ASDIRECTED EDWARD Last Admin: 01/27/20 07:31 Dose: 999 mls/hr Oxytocin/Sodium Chloride (Oxytocin 30 Unit/500 Ml-Ns) 30 unit in 500 mls @ 999 mls/hr IV TITRATE EDWARD Oxytocin/Sodium Chloride (Oxytocin 30 Unit/500 Ml-Ns) 30 unit in 500 mls @ 2 mls/hr IV TITRATE EDWARD; Protocol Last Titration: 01/27/20 07:54 Dose: 10 munits/min, 10 mls/hr Tranexamic Acid 1,000 mg/ (Sodium Chloride) 110 mls @ 660 mls/hr IV ONETIME PRN PRN Reason: Bleeding Lidocaine HCl (Xylocaine 1%) 50 ml INJECT ONETIME PRN PRN Reason: Laceration repair Methylergonovine Maleate (Methergine) 0.2 mg IM ASDIRECTED PRN PRN Reason: Post Hemorrhage Misoprostol (Cytotec) 200 mcg PO ONETIME PRN PRN Reason: Post Hemorrhage Misoprostol (Cytotec) 25 mcg VAG Q6H PRN PRN Reason: Cervical Ripening Last Admin: 01/26/20 18:37 Dose: 25 mcg Nalbuphine HCl (Nubain) 10 mg IVPUSH Q1H PRN PRN Reason: Pain (severe 7-10) Ondansetron HCl (Zofran) 4 mg IVPUSH Q6H PRN PRN Reason: Nausea/Vomiting Sodium Chloride (Saline Flush) 10 ml FLUSH ASDIRECTED PRN PRN Reason: Keep Vein Open Sodium Chloride (Saline Flush) 2.5 ml FLUSH ASDIRECTED PRN PRN Reason: Keep Vein Open Sodium Chloride (Normal Saline) 10 ml IV ASDIRECTED PRN PRN Reason: IV Use Sterile Water (Sterile Water For Irrigation) 1,000 ml IRR ASDIRECTED PRN PRN Reason: delivery Terbutaline Sulfate (Brethine) 0.25 mg SUBCUT ASDIRECTED PRN PRN Reason: Tacysystole Discontinued Medications Fentanyl/Bupivacaine HCl (Fentanyl/Bupivacaine/Ns 2 Mcg-0.125% 250 Ml) Confirm Administered Dose 250 mls @ as directed .ROUTE .[employer]-MED ONE Stop: 01/27/20 05:44 - Problem List & Annotations (1) Vaginal delivery SNOMED Code(s): 337409518 Code(s): O80 - ENCOUNTER FOR FULL-TERM UNCOMPLICATED DELIVERY Status: Acute Current Visit: Yes - Problem List Review Problem List Initiated/Reviewed/Updated: Yes - My Orders Last 24 Hours: My Active Orders 01/26/20 17:10 Patient Status [ADT] Routine 01/26/20 17:21 Butorphanol [Stadol] 1 mg IVPUSH Q1H PRN Carboprost Tromethamine [Hemabate DS] 250 mcg IM ASDIRECTED PRN Lidocaine 1% [Xylocaine 1%] 50 ml INJECT ONETIME PRN Methylergonovine [Methergine] 0.2 mg IM ASDIRECTED PRN Nalbuphine [Nubain] 10 mg IVPUSH Q1H PRN Ondansetron [Zofran] 4 mg IVPUSH Q6H PRN Sodium Chloride 0.9% [Normal Saline] 10 ml IV ASDIRECTED PRN Sodium Chloride 0.9% [Saline Flush] 10 ml FLUSH ASDIRECTED PRN Sodium Chloride 0.9% [Saline Flush] 2.5 ml FLUSH ASDIRECTED PRN Terbutaline [Brethine] 0.25 mg SUBCUT ASDIRECTED PRN Tranexamic Acid [Cyklokapron] 1,000 mg Sodium Chloride 0.9% [Normal Saline] 100 ml IV ONETIME Water For Irrigation,Sterile [Sterile Water for Irrigation] 1,000 ml IRR ASDIRECTED PRN miSOPROStoL [Cytotec] 200 mcg PO ONETIME PRN Resuscitation Status Routine 01/26/20 17:22 Bedrest Bathroom Privileges [RC] ASDIRECTED Communication Order [RC] ASDIRECTED May Shower [RC] ASDIRECTED Notify Provider [RC] PRN Oxygen Therapy [RC] ASDIRECTED Up ad [place] [RC] ASDIRECTED Vital Signs [RC] PER UNIT ROUTINE Scalp Electrode [WOMSER] Per Unit Routine Peripheral IV Insertion Adult [OM.PC] Routine 01/26/20 17:30 Lactated Ringers [Ringers, Lactated] 1,000 ml IV ASDIRECTED Oxytocin/0.9 % Sodium Chloride [Oxytocin 30 Unit/500 ML-NS] 30 unit in 500 ml IV TITRATE Oxytocin/0.9 % Sodium Chloride [Oxytocin 30 Unit/500 ML-NS] 30 unit in 500 ml IV TITRATE Medication Administration Instruction [OM.PC] Q3H 04/05/20 18:00 miSOPROStoL [Cytotec] 25 mcg VAG Q6H PRN 01/26/20 18:24 RPR (SYPHILIS SERO) W/ RFLX [REF] Routine 01/27/20 Breakfast Clear Liquid Diet [DIET]
[2020-01-27] MEDS ORDERED: Witch Hazel Medicated Pads 40/Jar TOP PRN (10:05)
[2020-01-27] MEDS ORDERED: Ibuprofen 800 MG Tab PO PRN (10:05)
[2020-01-27] MEDS ORDERED: Methylergonovine 0.2 MG/1 ML Amp IM PRN (10:05)
[2020-01-27] MEDS ORDERED: Benzocaine/Menthol 20%-0.5% Spray 78 GM Cannister TOP PRN (10:05)
[2020-01-27] MEDS ORDERED: Docusate Sodium 100 MG Cap PO PRN (10:05)
[2020-01-27] MEDS ORDERED: Tranexamic Acid 1,000 MG in Sodium Chloride 0.9% 100 ML IV PRN (10:05)
[2020-01-27] MEDS ORDERED: Bisacodyl 10 MG Supp RECTAL PRN (10:05)
[2020-01-27] MEDS ORDERED: Lanolin 100% Cream 7 GM Tube TOP PRN (10:05)
[2020-01-27] MEDS ORDERED: Acetaminophen 500 MG Tab PO PRN ×2 (10:05)
--- NOTE | 2020-01-27 11:31 | OR ---
SURGEON: Kaylan Hernandez M.D. DATE OF PROCEDURE: 01/27/2020 PREOPERATIVE DIAGNOSES: 39-3/7 week intrauterine , induction of labor. POSTOPERATIVE DIAGNOSES: 39-3/7 week intrauterine , induction of labor. PROCEDURE: Cytotec, Pitocin induction of labor, artificial rupture of membranes, term spontaneous vaginal delivery, repair of second-degree laceration. PRIMARY SURGEON: Kaylan Hernandez M.D. ANESTHESIA: Epidural. ESTIMATED BLOOD LOSS: Less than 300 mL. FINDINGS: Liveborn female. scores 9 and 9. Weight is pending at the time of dictation. Placenta spontaneous. Schultze intact with 3 vessels. Perineum, second-degree perineal laceration repaired. COMPLICATIONS: None known. DISPOSITION: Mother and baby are in LDR in good condition. BRIEF HISTORY: This is a 29-year-old female, G2, P1-0-0-1. She presents for induction of labor due to strict visitor precautions due to COVID-19. She presents for induction of labor requiring arrangements for her older child. She presented with cervix closed and thick. She received 2 doses of Cytotec. By morning, she was 4 cm, 80%. She had received an epidural. Category 1 heart tones were noted. Artificial rupture of membranes was performed at approximately 8:20 a.m., and she progressed to complete by 9:15 a.m. DESCRIPTION OF PROCEDURE: With the patient in dorsal lithotomy position, the patient pushed over 4 contractions to a 5+ station, at which time the head was delivered spontaneously and atraumatically over the perineum with support with subsequent delivery of the 's shoulders and body without any difficulty. The infant was bulb suctioned by nose and mouth, and after the cord had ceased to pulsate, it was doubly clamped and cut. The was handed to the mother in the presence of the nurse attending delivery. The infant was a liveborn female. scores of 9 and 9. Weight is pending at the time of dictation. Pitocin was initiated after delivery of the infant to assist with delivery of the placenta, which was delivered spontaneously. Schultze intact with 3 vessels. Upon inspection of the pelvis and perineum, there were no periurethral, vaginal sidewall, cervical, or rectal lacerations. There was a small second-degree perineal laceration at the site of prior repair. This was repaired with a running locking suture of 3- 0 Vicryl followed by deep running suture of the same and a subcuticular suture of the same for the skin. Final sponge, needle, and instrument counts were correct. There were no known complications. Mother and baby are in LDR in good condition. ABHIJIT / IGNACIA /[id number]
[2020-01-27] MEDS: Ibuprofen 400 MG Tab PO PRN (20:25)
[2020-01-28] MEDS: Ibuprofen 400 MG Tab PO PRN (06:03)
--- NOTE | 2020-01-28 09:15 | PCM48HPAN ---
Post Anesthesia Note - EVALUATION WITHIN 48HRS OF ANESTHETIC Vital Signs in Normal Range: Yes Patient Participated in Evaluation: Yes Respiratory Function Stable: Yes Airway Patent: Yes Cardiovascular Function Stable: Yes Hydration Status Stable: Yes Pain Control Satisfactory: Yes Nausea and Vomiting Control Satisfactory: Yes Mental Status Recovered: Yes Vital Signs: Last Vital Signs Temp 36.4 C 01/28/20 08:00 Pulse 70 01/28/20 08:00 Resp 16 01/28/20 08:00 BP 123/83 01/28/20 08:00 Pulse Ox 96 01/28/20 08:00 - COMMENTS/OBSERVATIONS Free Text/Narrative:: Doing well.
--- NOTE | 2020-01-28 09:38 | PCM.PNPP ---
- General Info Date of Service: 01/28/20 Functional Status: Reports: Pain Controlled, Tolerating Diet, Ambulating, Urinating, New Symptoms - Review of Systems General: Reports: No Symptoms HEENT: Reports: No Symptoms Pulmonary: Reports: No Symptoms Cardiovascular: Reports: No Symptoms Gastrointestinal: Reports: No Symptoms Genitourinary: Reports: No Symptoms Musculoskeletal: Reports: No Symptoms Skin: Reports: No Symptoms Neurological: Reports: No Symptoms Psychiatric: Reports: No Symptoms - Patient Data Vital Signs - Most Recent: Last Vital Signs Temp 36.4 C 01/28/20 08:00 Pulse 70 01/28/20 08:00 Resp 16 01/28/20 08:00 BP 123/83 01/28/20 08:00 Pulse Ox 96 01/28/20 08:00 Weight - Most Recent: 87.09 kg Lab Results - Last 24 Hours: Laboratory Results - last 24 hr 01/27/20 01/28/20 Range/Units 09:41 06:08 Hgb 11.1 L (12.0-16.0) g/dL Hct 34.5 L (36.0-46.0) % Cord ABG pH 7.243 (7.18-7.38) Cord ABG Base Excess -4 (-10--2) Cord VBG pH 7.350 (7.25-7.45) Cord VBG Base Excess -3 (-10--2) Med Orders - Current: Current Medications Acetaminophen (Tylenol Extra Strength) 500 mg PO Q4H PRN PRN Reason: Pain Acetaminophen (Tylenol Extra Strength) 1,000 mg PO Q4H PRN PRN Reason: Pain Benzocaine/Menthol (Dermoplast Pain Relief 20%-0.5% Leslie) 78 gm TOP ASDIRECTED PRN PRN Reason: Perineal Comfort Measure Last Admin: 01/27/20 13:16 Dose: 1 applic Bisacodyl (Dulcolax) 10 mg RECTAL ONETIME PRN PRN Reason: Constipation Docusate Sodium (Colace) 100 mg PO BID PRN PRN Reason: Constipation Last Admin: 01/27/20 20:25 Dose: 100 mg Emollient Ointment (Lansinoh Hpa) 0 gm TOP ASDIRECTED PRN PRN Reason: Sore Nipples Last Admin: 01/27/20 13:15 Dose: 1 applic Tranexamic Acid 1,000 mg/ (Sodium Chloride) 110 mls @ 660 mls/hr IV ONETIME PRN PRN Reason: Bleeding Ibuprofen (Motrin) 400 mg PO Q4H PRN PRN Reason: Pain Last Admin: 01/28/20 06:03 Dose: 400 mg Ibuprofen (Motrin) 800 mg PO Q6H PRN PRN Reason: Pain Methylergonovine Maleate (Methergine) 0.2 mg IM ONETIME PRN PRN Reason: Excessive Vaginal Bleeding Witman Miller (Tucks) 1 pad TOP ASDIRECTED PRN PRN Reason: comfort care Last Admin: 01/27/20 13:16 Dose: 1 applic Discontinued Medications Butorphanol Tartrate (Stadol) 1 mg IVPUSH Q1H PRN PRN Reason: Pain Carboprost Tromethamine (Hemabate Ds) 250 mcg IM ASDIRECTED PRN PRN Reason: Post Hemorrhage Lactated Ringer's (Ringers, Lactated) 1,000 mls @ 150 mls/hr IV ASDIRECTED EDWARD Last Admin: 01/27/20 07:31 Dose: 999 mls/hr Oxytocin/Sodium Chloride (Oxytocin 30 Unit/500 Ml-Ns) 30 unit in 500 mls @ 999 mls/hr IV TITRATE EDWARD Oxytocin/Sodium Chloride (Oxytocin 30 Unit/500 Ml-Ns) 30 unit in 500 mls @ 2 mls/hr IV TITRATE EDWARD; Protocol Last Titration: 01/27/20 07:54 Dose: 10 munits/min, 10 mls/hr Tranexamic Acid 1,000 mg/ (Sodium Chloride) 110 mls @ 660 mls/hr IV ONETIME PRN PRN Reason: Bleeding Fentanyl/Bupivacaine HCl (Fentanyl/Bupivacaine/Ns 2 Mcg-0.125% 250 Ml) Confirm Administered Dose 250 mls @ as directed .ROUTE .[facility]-MED ONE Stop: 01/27/20 05:44 Lidocaine HCl (Xylocaine 1%) 50 ml INJECT ONETIME PRN PRN Reason: Laceration repair Methylergonovine Maleate (Methergine) 0.2 mg IM ASDIRECTED PRN PRN Reason: Post Hemorrhage Misoprostol (Cytotec) 200 mcg PO ONETIME PRN PRN Reason: Post Hemorrhage Misoprostol (Cytotec) 25 mcg VAG Q6H PRN PRN Reason: Cervical Ripening Last Admin: 01/26/20 18:37 Dose: 25 mcg Nalbuphine HCl (Nubain) 10 mg IVPUSH Q1H PRN PRN Reason: Pain (severe 7-10) Ondansetron HCl (Zofran) 4 mg IVPUSH Q6H PRN PRN Reason: Nausea/Vomiting Sodium Chloride (Saline Flush) 10 ml FLUSH ASDIRECTED PRN PRN Reason: Keep Vein Open Sodium Chloride (Saline Flush) 2.5 ml FLUSH ASDIRECTED PRN PRN Reason: Keep Vein Open Sodium Chloride (Normal Saline) 10 ml IV ASDIRECTED PRN PRN Reason: IV Use Sterile Water (Sterile Water For Irrigation) 1,000 ml IRR ASDIRECTED PRN PRN Reason: delivery Last Admin: 01/27/20 10:19 Dose: 1,000 ml Terbutaline Sulfate (Brethine) 0.25 mg SUBCUT ASDIRECTED PRN PRN Reason: Tacysystole - Infant Interaction Infant Disposition, : [place] in Room with Family Interaction: Holding Infant Feeding: Breastfed ; Nursed Well Support Person: - Recovery Exam Fundal Tone: Firm Fundal Level: 2 Fingerbreadths Below Umbilicus Fundal Placement: Midline Lochia Amount: Scant Lochia Color: Rubra/Red Episiotomy/Laceration: Approximated Bladder Status: Voiding Urinary Elimination: Voided - Exam General: Alert, Oriented HEENT: Pupils Equal Neck: Supple Lungs: Normal Respiratory Effort GI/Abdominal Exam: Soft, Non-Tender, No Organomegaly, No Distention, Pelvis Stable Extremities: Normal Inspection, Non-Tender, No Pedal Edema Skin: Warm, Dry, Intact Neurological: No New Focal Deficit Psy/Mental Status: Alert, Normal Affect, Normal Mood - Problem List & Annotations (1) Vaginal delivery SNOMED Code(s): 020716699 Code(s): O80 - ENCOUNTER FOR FULL-TERM UNCOMPLICATED DELIVERY Status: Acute Current Visit: Yes - Problem List Review Problem List Initiated/Reviewed/Updated: Yes - My Orders Last 24 Hours: My Active Orders 01/27/20 10:05 Patient Status [ADT] Routine May Shower [RC] ASDIRECTED Up ad [place] [RC] ASDIRECTED Vital Signs [RC] PER UNIT ROUTINE Acetaminophen [Tylenol Extra Strength] 1,000 mg PO Q4H PRN Acetaminophen [Tylenol Extra Strength] 500 mg PO Q4H PRN Benzocaine/Menthol [Dermoplast Pain Relief 20%-0.5% Leslie] 78 gm TOP ASDIRECTED PRN Docusate Sodium [Colace] 100 mg PO BID PRN Ibuprofen [Motrin] 400 mg PO Q4H PRN Ibuprofen [Motrin] 800 mg PO Q6H PRN Lanolin [Lansinoh HPA] See Dose Instructions TOP ASDIRECTED PRN Methylergonovine [Methergine] 0.2 mg IM ONETIME PRN Tranexamic Acid [Cyklokapron] 1,000 mg Sodium Chloride 0.9% [Normal Saline] 100 ml IV ONETIME bisacodyL [Dulcolax] 10 mg RECTAL ONETIME PRN witch Nicky [Tucks] 1 pad TOP ASDIRECTED PRN Assess Lochia [WOMSER] Per Unit Routine Assess Uterine Involution [WOMSER] Per Unit Routine Peripheral IV Discontinue [OM.PC] Routine Resuscitation Status Routine 01/27/20 Lunch Regular Diet [DIET] - Assessment Assessment:: PPD# 1 after , stable would like to go home today. - Plan Plan:: Discharge instructions reviewed
== END 2020-01-28 16:05 | disposition home or self-care (01) | DRG 560 ==
LOC: MW.OB 17:01 → OBSVTOIN 01-27 10:05 → MW.OB 01-27 14:50
PROVIDERS: ADMIT Obstetrics & Gynecology; ATTEND Obstetrics & Gynecology
PROC: 10E0XZZ Delivery of Products of Conception, External Approach (ICD-10-PCS; principal; 2020-01-27)
PROC: 10907ZC Drainage of Amniotic Fluid, Therapeutic from Products of Conception, Via Natural or Artificial Opening (ICD-10-PCS; 2020-01-27)
PROC: 0KQM0ZZ Repair Perineum Muscle, Open Approach (ICD-10-PCS; 2020-01-27)
PROC: 3E033VJ Introduction of Other Hormone into Peripheral Vein, Percutaneous Approach (ICD-10-PCS; 2020-01-27)
PROC: 3E0R3BZ Introduction of Anesthetic Agent into Spinal Canal, Percutaneous Approach (ICD-10-PCS; 2020-01-27)
PROC: 00HU33Z Insertion of Infusion Device into Spinal Canal, Percutaneous Approach (ICD-10-PCS; 2020-01-27)
DX: O70.1 Second degree perineal laceration during delivery (principal); Z37.0 Single live birth; Z3A.39 39 weeks gestation of pregnancy
CPT/HCPCS: 01967; 36415; 51701; 59025; 59409; 82803; 85014; 85018; 85027; 86592; 86593; 86850; 86900; 86901; A9270-GY; J2590; J7120